=== PATIENT | female | born 1985 | race Caucasian/White ===

== ENCOUNTER 2016-03-26 18:41 | Outpatient (CLI) | payer MEDICAID ==
[~2016-03-26] VITALS: Ht 157.5 cm; Wt 105.3 kg
[2016-03-26 19:30] VITALS: BP 128/67; PULSE 87; RESP 18
[2016-03-26] MEDS ORDERED: LACTATED RINGER'S 1,000 ML IV ONE (20:00)
--- NOTE | 2016-03-26 20:42 | RADRPT ---
PROCEDURE: Ultrasound CLINICAL INDICATION: labor. TECHNIQUE: Ultrasound COMPARISON: None FINDINGS: motion is appropriate for score of 2; breathing is appropriate for score of 2; ton e is appropriate for scar to; and ELOY is appropriate for score of 2. Biophysical profile score of 0 10/12. Cephalic presentation. Cardiac motion is detected at a rate of 148 beats per minute. Placenta is f undal grade II. ELOY is 12.2 cm. IMPRESSION: Biophysical profile score of 10/12. RPTAT: UU Physician Carlitos Date Time Electronically viewed and signed by Physician Carlitos on 03/26/2016 20:42 RS/
[2016-03-26] MEDS ORDERED: LACTATED RINGER'S 1,000 ML IV* SCH (21:00)
[2016-03-26 21:01] LABS: URINE BILIRUBIN (Dip) NEGATIVE (NEGATIVE); URINE BLOOD (Dip) NEGATIVE (NEGATIVE); URINE COLOR LT. YELLOW (YELLOW); URINE GLUCOSE (Dip) NEGATIVE (NEGATIVE); URINE KETONES (Dip) TRACE (NEGATIVE); URINE LEUKOCYTE ESTERASE (Dip) NEGATIVE (NEGATIVE); URINE NITRITE (Dip) NEGATIVE (NEGATIVE); URINE UROBILINOGEN (Dip) 1.0 E.U./dL (0.1-1.0)
[2016-03-26 21:02] LABS: ADD UMIC NO; URINE TOTAL PROTEIN (Dip) NEGATIVE (NEGATIVE)
[2016-03-26 21:23] LABS: BASOPHILS % 0.3 % (0.0-2.0); EOSINOPHILS # 0.2 10^3/ul (0.0-0.5); HEMATOCRIT 35.3 % (37.0-47.0); HEMOGLOBIN 11.6 g/dl (12.0-16.0); LYMPHOCYTES # 1.6 10^3/ul (0.8-2.9); LYMPHOCYTES % 14.1 % (15.0-51.0); MEAN CORPUSCULAR HEMOGLOBIN 23.8 pg (29.0-33.0); MEAN CORPUSCULAR HGB CONC 32.8 g/dl (32.0-37.0); MEAN CORPUSCULAR VOLUME 72.6 fl (82.0-101.0); MONOCYTE # 0.5 10^3/ul (0.3-0.9); MONOCYTES % 4.6 % (0.0-11.0); NEUTROPHIL # 9.1 10^3/ul (1.6-7.5); PLATELET COUNT 303 10^3/UL (140-440); RED BLOOD COUNT 4.86 10^6/ul (4.20-5.40); RED CELL DISTRIBUTION WIDTH 15.3 % (11.5-14.5); UNCORRECTED WBC 11.5 10^3/ul (4.8-10.8); WHITE BLOOD COUNT 11.5 10^3/ul (4.8-10.8)
[2016-03-26 21:26] LABS: CONDITION 1; LH ANALYZER COMMENTS 1
[2016-03-26 21:32] LABS: ALBUMIN 3.4 g/dl (3.3-4.9); POTASSIUM 3.9 mmol/L (3.5-5.1)
[2016-03-26 21:34] LABS: CREATININE 0.36 mg/dl (0.44-1.00)
[2016-03-26 21:35] LABS: ALBUMIN/GLOBULIN RATIO 0.87; BILIRUBIN,INDIRECT 0.3 mg/dl (0-1.1); BILIRUBIN,TOTAL 0.3 mg/dl (0.2-1.3); CALCIUM 9.1 mg/dl (8.4-10.2); TOTAL PROTEIN 7.3 g/dl (6.1-8.1)
--- NOTE | 2016-03-27 03:31 | TRIAGE ---
OB Triage Datetime Report Generated by CPN: 03/27/2016 03:31 Datetime: 03/26/2016 21:50 Stage of : OB Triage Assessment Type: Triage Datetime: 03/26/2016 21:49 Stage of : OB Triage Nausea/Vomiting: Denies Labor Evaluation Frequency: None noted or palpated Monitor Mode: External Resting Tone [place]: Relaxed Heart Rate FHR Baseline Rate: 135 Monitor Mode: External US Variability: Moderate 6-25 bpm Accelerations: 15X15 Decelerations: None Category: Category I Pain Assessment Pain Scale: 0 Pain Presence: None/Denies Pain Type: N/A Pain Assessment Comments: Pt denies any pain or cramping at this time. No N/V since arrival at [facility] . Datetime: 03/26/2016 21:46 Stage of : OB Triage Datetime: 03/26/2016 21:45 Stage of : OB Triage Datetime: 03/26/2016 21:31 Stage of : OB Triage Datetime: 03/26/2016 21:18 Vaginal Exam Dilatation (cms): 1.5 Effacement (%): 30 Station: -3 Exam By: Karina Cohen Membrane Status: Intact Amniotic Fluid Amount: None Vaginal Bleeding: None Cervix, Consistency: Soft Cervix, Position: Posterior Presentation 'A': Cephalic Datetime: 03/26/2016 21:00 Stage of : OB Triage Labor Evaluation Frequency: None noted or palpated Monitor Mode: External Resting Tone [place]: Relaxed Heart Rate FHR Baseline Rate: 140 Monitor Mode: External US FHR Baseline Changes: No Baseline Change Variability: Moderate 6-25 bpm Accelerations: 15X15 Decelerations: None Category: Category I Datetime: 03/26/2016 20:47 Assessment Type: Triage Datetime: 03/26/2016 20:00 Stage of : OB Triage Labor Evaluation Frequency: x2 Monitor Mode: External Duration (sec)2399: 50 Quality: Mild Pattern: Normal: <= 5 Contractions in 10 Minutes Resting Tone [place]: Relaxed Heart Rate FHR Baseline Rate: 140 Monitor Mode: External US Variability: Moderate 6-25 bpm Accelerations: 15X15 Decelerations: None Category: Category I Datetime: 03/26/2016 19:53 Stage of : OB Triage Datetime: 03/26/2016 19:51 Stage of : OB Triage Datetime: 03/26/2016 19:26 Stage of : OB Triage Datetime: 03/26/2016 19:23 EGA: 35.2 Datetime: 03/26/2016 19:20 Time of Arrival: 03/26/2016 18:35 Arrived By: Wheelchair Arrived From: Home Chief Complaint: Itching on abd _ legs, vomiting with bld, abd pain, _ head cold Movement: Present Contractions: Irregular Time Contractions Began: 03/26/2016 16:30 Contractions: with vomiting Rupture of Membranes: Denies Vaginal Bleeding: None Vaginal Discharge: Denies Abdominal Trauma: Not Applicable Patient Complaints: Cramping; Vomiting; Cough; Other Time Provider Notified: 03/26/2016 19:53 Provider Notified: Initial Plan: UA, C_S, CBC, CMP, U/S for BPP, IV hydration, VE Datetime: 03/26/2016 19:13 Assessment Type: Triage Maternal Assessment Level of Consciousness: Fully Conscious DTR's/Clonus: DTRs 2+; No Clonus Headache: Denies Blurred Vision: No Respiratory Effort: Unlabored; Regular Rhythm; Equal Expansion Breath Sounds, Left: Clear and Equal Breath Sounds, Right: Clear and Equal Nausea/Vomiting: Hx of Nausea/Vomiting (Annotations: Hx emesis x3 today. Denies N/V at this time.) RUQ Epigastric Pain: Denies Lower Extremities Edema: Bilateral Lower Extremities Degree: 1+ Upper Extremities Edema: None Degree: None Facial Edema: None Fall Risk Assessment History of Falling: (0) No Secondary Diagnosis: (0) No Ambulatory Aid: (0) Bedrest/Nurse Assist IV Therapy: (0) No Gait: (0) Normal/Bedrest/Immobile Mental Status: (0) Oriented to Own Ability Fall Score: 0 Fall Risk Score Definition: No Risk: No action required Datetime: 03/26/2016 19:05 Stage of : OB Triage Pain Assessment Pain Scale: 7 Pain Presence: Intermittent Pain Type: Cramping Pain Location: Abdomen Pain Relief Measures: Comfort Measures Pain Assessment Comments: Upper abd pain when vomiting with occasional lower abd cramping
== END 2016-03-26 22:07 | disposition home or self-care (01) ==
LOC: OBT 18:41 → L-D 18:41 → OBT 22:07
PROVIDERS: ATTEND Obstetrics & Gynecology
DX: O60.03 Preterm labor without delivery, third trimester (principal); O26.893 Other specified pregnancy related conditions, third trimester; R19.7 Diarrhea, unspecified; O21.2 Late vomiting of pregnancy; Z3A.35 35 weeks gestation of pregnancy
CPT/HCPCS: 76818; 80053; 81003; 83789; 85025; 87086; J7120

== ENCOUNTER 2016-03-28 16:31 | Outpatient (CLI) | payer MEDICAID ==
[~2016-03-28] VITALS: Ht 157.5 cm; Wt 105.8 kg
[2016-03-28 16:38] VITALS: BP 128/66; PULSE 85; RESP 19; Ht 157.5 cm; Wt 105.8 kg
[2016-03-28] MEDS ORDERED: FERR134T PO (16:40)
[2016-03-28] MEDS ORDERED: PREN1TAB79 PO (16:40)
--- NOTE | 2016-03-28 17:21 | RADRPT ---
PROCEDURE: US OB biophysical profile. CLINICAL INDICATION: decreased movements, PTL TECHNIQUE: Multiple sonographic images of the pelvis were obtained. The images were reviewed on a PACS workstation. COMPARISON: 03/26/16 FINDINGS: There is a single viable intrauterine gestation. Cardiac activity is present with 152 beats per min gwen. There is a vertex presentation. The placenta is anterior. There is no evidence of placental abruption. There is a normal amount of amniotic fluid with an ELOY = 15.2 cm. Biophysical profile: movement 2/2 tone 2/2. breathing 2/2 ELOY 2/2 Total 10/12 RPTAT: AA . IMPRESSION: Normal biophysical profile. . .Pradeep Redman MD, MD Date Time Electronically viewed and signed by .Pradeep Redman MD, MD on 03/28/2016 17:21 .S/
--- NOTE | 2016-03-28 19:07 | ERD ---
DATE OF SERVICE: The patient is a 31-year-old G5, P4 here for NST at 35 weeks. The patient has no complaints. NST i s reactive. The patient was discharged home. Followup will be as scheduled with ____. Dictated By: CRISTAL CESPEDES MD /NTS Conf#: [id number] DID#: [id number]
--- NOTE | 2016-03-28 19:16 | TRIAGE ---
OB Triage Datetime Report Generated by CPN: 03/28/2016 19:16 Datetime: 03/28/2016 18:09 Stage of : OB Triage Level of Consciousness: Fully Conscious DTR's/Clonus: DTRs 1+ Headache: Denies Blurred Vision: No Respiratory Effort: Unlabored Breath Sounds, Left: Clear and Equal Breath Sounds, Right: Clear and Equal Nausea/Vomiting: Denies RUQ Epigastric Pain: Denies Facial Edema: None Frequency: NONE Monitor Mode: External Resting Tone [place]: Relaxed FHR Baseline Rate: 145 Monitor Mode: External US Variability: Moderate 6-25 bpm Accelerations: 15X15 Decelerations: None Category: Category I Pain Scale: 0 Pain Presence: None/Denies Pain Type: N/A Pain Goal: 3 Membrane Status: Intact Datetime: 03/28/2016 17:13 Comments: U/S DONE PT BACK ON EFM X 2 Datetime: 03/28/2016 17:00 Stage of : OB Triage Level of Consciousness: Fully Conscious DTR's/Clonus: DTRs 1+ Headache: Denies Breath Sounds, Left: Clear and Equal Breath Sounds, Right: Clear and Equal Nausea/Vomiting: Denies RUQ Epigastric Pain: Denies Frequency: NONE Monitor Mode: External Resting Tone [place]: Relaxed FHR Baseline Rate: 145 Monitor Mode: External US Variability: Moderate 6-25 bpm Accelerations: 15X15 Decelerations: None Category: Category I Comments: U/S TECH AT BEDSIDE Pain Scale: 0 Pain Presence: None/Denies Pain Type: N/A Pain Goal: 3 Membrane Status: Intact Datetime: 03/28/2016 16:34 Assessment Type: Triage Level of Consciousness: Fully Conscious DTR's/Clonus: DTRs 2+; No Clonus Headache: Denies Blurred Vision: No Respiratory Effort: Unlabored; Regular Rhythm; Equal Expansion Breath Sounds, Left: Clear and Equal Breath Sounds, Right: Clear and Equal Nausea/Vomiting: Denies RUQ Epigastric Pain: Denies Lower Extremities Edema: None Degree: None Upper Extremities Edema: None Degree: None Facial Edema: None History of Falling: (0) No Secondary Diagnosis: (0) No Ambulatory Aid: (0) Bedrest/Nurse Assist IV Therapy: (0) No Gait: (0) Normal/Bedrest/Immobile Mental Status: (0) Oriented to Own Ability Fall Score: 0 Fall Risk Score Definition: No Risk: No action required Datetime: 03/28/2016 16:28 Time of Arrival: 03/28/2016 16:28 EGA: 35.4 Arrived By: Ambulatory Arrived From: Home Chief Complaint: NST AND BPP F/U FOR PTL AND GDM Movement: Present Contractions: Denies/Absent Rupture of Membranes: Denies Vaginal Discharge: Denies Recent Sexual Intercouse: Denies Abdominal Trauma: Not Applicable Patient Complaints: None Additional Patient Complaints: PT DENIES ANY OTHER PROBLEM AT THIS TIME Time Provider Notified: 03/28/2016 17:00 Provider Notified: EPTE Initial Plan: NST AND BPP
== END 2016-03-28 18:18 | disposition home or self-care (01) ==
LOC: OBT 16:31 → L-D 16:32 → OBT 18:18
PROVIDERS: ATTEND Obstetrics & Gynecology
DX: O60.03 Preterm labor without delivery, third trimester (principal); Z3A.35 35 weeks gestation of pregnancy
CPT/HCPCS: 76818; Z7500; G0463

== ENCOUNTER 2016-04-25 09:19 | Inpatient (IN) | payer MEDICAID ==
[~2016-04-25] VITALS: Ht 152.4 cm; Wt 105.2 kg
[~2016-04-25 09:19] MED LIST: FERR134T PO; PHENYLephrine (100 MCG/ML) 5ML SYG ONE; PREN1TAB79 PO
[2016-04-25 09:27] VITALS: Ht 152.4 cm; Wt 105.2 kg
[2016-04-25 09:28] VITALS: BP 135/70
[2016-04-25] MEDS ORDERED: CARBOPROST 250 MCG INJ IM PRN ×2 (10:00→21:30)
[2016-04-25] MEDS ORDERED: OXYTOCIN 30 UNITS/LR 500 ML IV SCH ×3 (10:00)
[2016-04-25] MEDS ORDERED: AMPICILLIN 2 GM/NS (PMX) 100 ML IV ONE (10:00)
[2016-04-25] MEDS ORDERED: OXYTOCIN 30 UNITS/LR 500 ML IV PRN ×2 (10:00→21:30)
[2016-04-25] MEDS ORDERED: MISOPROSTOL 200 MCG TAB PR PRN ×2 (10:00→21:30)
[2016-04-25] MEDS ORDERED: METHYLERGONOVINE 0.2 MG INJ IM PRN ×2 (10:00→21:30)
[2016-04-25] MEDS ORDERED: LIDOCAINE 1% (MPF) 30 ML INJ INJ PRN (10:00)
[2016-04-25] MEDS ORDERED: LACTATED RINGER'S 1,000 ML IV PRN (10:00)
[2016-04-25] MEDS ORDERED: BUTORPHANOL 2 MG INJ IV PRN (10:00)
--- NOTE | 2016-04-25 10:05 | TRIAGE ---
OB Triage Datetime Report Generated by CPN: 04/25/2016 10:05 Datetime: 04/25/2016 10:00 Interventions: Side to Side Datetime: 04/25/2016 09:40 Bedside Blood Glucose: 157 Datetime: 04/25/2016 09:36 Labor Evaluation Monitor Mode: External Datetime: 04/25/2016 09:35 Vaginal Exam Dilatation (cms): 1.0 Effacement (%): 70 Station: -3 Exam By: Kianna SANTIAGO Datetime: 04/25/2016 09:32 Stage of : OB Triage Assessment Type: Triage Maternal Assessment Level of Consciousness: Fully Conscious DTR's/Clonus: DTRs 2+; No Clonus Headache: Denies Blurred Vision: No Respiratory Effort: Unlabored; Regular Rhythm; Equal Expansion Breath Sounds, Left: Clear and Equal Breath Sounds, Right: Clear and Equal Nausea/Vomiting: Denies RUQ Epigastric Pain: Denies Lower Extremities Edema: None Degree: None Upper Extremities Edema: None Degree: None Facial Edema: None Temperature Route: Oral Fall Risk Assessment History of Falling: (0) No Secondary Diagnosis: (0) No Ambulatory Aid: (0) Bedrest/Nurse Assist IV Therapy: (0) No Gait: (0) Normal/Bedrest/Immobile Mental Status: (0) Oriented to Own Ability Fall Score: 0 Fall Risk Score Definition: No Risk: No action required Labor Evaluation Monitor Mode: External Heart Rate FHR Baseline Rate: 155 Monitor Mode: External US Variability: Minimal - Undetectable to <=5 bpm Accelerations: 10X10 Decelerations: None Category: Category II Pain Assessment Pain Scale: 0 Pain Presence: None/Denies Pain Type: N/A Datetime: 04/25/2016 09:31 Time of Arrival: 04/25/2016 09:17 EGA: 39.4 Arrived By: Ambulatory Arrived From: Home Chief Complaint: UC'S SINCE 0200 Movement: Present Contractions: Regular Time Contractions Began: 04/25/2016 02:00 Contractions: 1-12 Rupture of Membranes: Ruptured Vaginal Bleeding: None Vaginal Discharge: Denies Recent Sexual Intercouse: Denies Abdominal Trauma: Not Applicable Patient Complaints: Contractions Time Provider Notified: 04/25/2016 09:52 Provider Notified: dr. burnett Initial Plan: VE, NST Datetime: 03/28/2016 18:18 Time of Arrival: 04/25/2016 09:17 EGA: 39.4 Arrived From: Home Movement: Present Contractions: Regular Contractions: 1-1 Rupture of Membranes: Denies Vaginal Discharge: Denies Recent Sexual Intercouse: Denies Abdominal Trauma: Not Applicable Datetime: 03/28/2016 16:34 Fall Score: 0 Fall Risk Score Definition: No Risk: No action required Datetime: 03/28/2016 16:28 EGA: 35.4 Datetime: 03/26/2016 19:23 EGA: 35.2 Datetime: 03/26/2016 19:13 Fall Score: 0 Fall Risk Score Definition: No Risk: No action required
[2016-04-25] MEDS: LACTATED RINGER'S 1,000 ML IV SCH ×2 (10:18→14:15)
--- NOTE | 2016-04-25 11:00 | RADRPT ---
PROCEDURE: US OB biophysical profile. CLINICAL INDICATION: decreased movements, labor pain TECHNIQUE: Multiple sonographic images of the pelvis were obtained. The images were reviewed on a PACS workstation. COMPARISON: 03/28/2016 FINDINGS: There is a single viable intrauterine gestation. Cardiac activity is present with 161 beats per min gwen. There is a vertex presentation. The placenta is posterior. There is no evidence of placental abruption. There is a decreased amount of amniotic fluid with an ELOY = 5.5 cm. Biophysical profile: movement 2/2 tone 2/2. breathing 2/2 ELOY 2/2 Total 10/12 RPTAT: AA . IMPRESSION: Normal biophysical profile. Oligohydramnios. . .Pradeep Redman MD, Date Time Electronically viewed and signed by .Pradeep Redman MD, on 04/25/2016 11:00 .S/
--- NOTE | 2016-04-25 11:04 | RADRPT ---
PROCEDURE: US OB. CLINICAL INDICATION: Size and dates , labor pain TECHNIQUE: Multiple sonographic images of the pelvis and gravid uterus were obtained. The images were reviewed on a PACS workstation. COMPARISON: No prior studies are available for comparison. FINDINGS: There is a single viable intrauterine gestation. Cardiac activity is present with 163 beats per min gwen. There is a vertex presentation. The placenta is posterior. There is no evidence for an abruption or placenta previa. Measurements were made in order to determine age. The results are as follows: BPD =8.9 cm HC =30.9 cm AC =32.3 cm FL =6.9 cm Estimated gestational age of approximately 35 weeks and 4 days based on ultrasound measurements. Clinical age: 39 weeks and 4 days. The estimated date of delivery is 05/26/16, based on ultrasound measurements. The EFW = 2773 g, 4.3%, based on LMP age. RPTAT: AA IMPRESSION: Single viable intrauterine gestation of approximately 35 weeks and 4 days based on ultrasound measu rements. Smaller than clinical age by 4 weeks. .Pradeep Redman MD, MD Date Time Electronically viewed and signed by .Pradeep Redman MD, on 04/25/2016 11:04 .S/
[2016-04-25 11:48] LABS: BASOPHILS % 0.3 % (0.0-2.0); EOSINOPHILS # 0.2 10^3/ul (0.0-0.5); EOSINOPHILS % 1.7 % (0.0-7.0); HEMOGLOBIN 11.8 g/dl (12.0-16.0); LYMPHOCYTES # 1.4 10^3/ul (0.8-2.9); LYMPHOCYTES % 15.3 % (15.0-51.0); MEAN CORPUSCULAR HEMOGLOBIN 23.9 pg (29.0-33.0); MEAN CORPUSCULAR HGB CONC 32.9 g/dl (32.0-37.0); MEAN CORPUSCULAR VOLUME 72.8 fl (82.0-101.0); MEAN PLATELET VOLUME 8.6 fl (7.4-10.4); MONOCYTE # 0.7 10^3/ul (0.3-0.9); MONOCYTES % 7.6 % (0.0-11.0); NEUTROPHIL # 7.1 10^3/ul (1.6-7.5); NEUTROPHILS % 75.1 % (39.0-77.0); PLATELET COUNT 233 10^3/UL (140-440); RED BLOOD COUNT 4.95 10^6/ul (4.20-5.40); RED CELL DISTRIBUTION WIDTH 16.5 % (11.5-14.5); UNCORRECTED WBC 9.5 10^3/ul (4.8-10.8); WHITE BLOOD COUNT 9.5 10^3/ul (4.8-10.8)
[2016-04-25 11:50] LABS: CONDITION 1; LH ANALYZER COMMENTS 1
[2016-04-25 12:01] LABS: INR 0.88; PROTIME 11.9 Sec (12.2-14.2); PT RATIO 0.9
[2016-04-25 12:02] LABS: PARTIAL THROMBOPLASTIN TIME 30.1 Sec (25.0-35.0)
[2016-04-25 13:25] LABS: BARBITURATES Negative (NEGATIVE); BENZODIAZEPINES Negative (NEGATIVE); CANNABINOIDS Negative (NEGATIVE); COCAINE Negative (NEGATIVE); OPIATES Negative (NEGATIVE)
[2016-04-25] MEDS: AMPICILLIN 1 GM/NS (PMX) 50 ML IV SCH ×2 (14:15→17:37)
[2016-04-25] MEDS ORDERED: FENTAnyl 2MCG/ML-ROPIV 0.2% 100 ML ONE (16:02)
--- NOTE | 2016-04-25 17:13 | HP ---
Date/Time of Note Date/Time of Note DATE: 04/25/16 TIME: 17:11 OB - History Hx of Present Free Text/Dictation @39+wks GA with Low ELOY,Spontaneous decels and labor : 5 Para: 3 Care: Good Care Obstetrical Complications: Gestational Diabetes Past Family/Social History * Past Medical, Surgical, Family and Obstetric Histories reviewed from chart. OB Admission Exam Vital Signs Vital Signs Vital Signs Date Time Temp Pulse Resp B/P Pulse Ox O2 Delivery O2 Flow Rate FiO2 04/25/16 09:28 98.3 135/70 Room Air Physical Exam Abdomen: WNL Extremities: Normal Cervical Dilatation: 5cm Effacement: 75% Station: -1 Membranes: Intact Heart Rate: 140's Decelerations: Variable Decelerations Varibility: Minimum Contractions on Admission: 6-10 Minutes Apart Last 72 hourBlood Glucose Bedside Glucose - 72 Hours Test 04/25/16 09:40 Bedside Glucose 157mg/dL (70-220) Last 72 hours Lab Results CBC & BMP 04/25/16 11:30 OB Assessment/Plan Reason for admission: active labor Plan: Expectant Management Other plan: @39+wks GA with Low ELOY,Spontaneous decels and labor URVASHI FREEMAN M.D. Apr 25, 2016 17:13
--- NOTE | 2016-04-25 17:14 | LDN ---
Date/Time of Note Date/Time of Note DATE: 04/25/16 TIME: 17:13 Delivery Summary Assisted Vaginal Delivery: Vacuum ( bradycardia) Placenta Delivered: Spontaneously Meconium: Light Perineum intact?: Yes Anesthesia type: Epidural Sponge & Needle done & correct: Yes All needle counts correct: Yes Any foreign bodies felt in the: No Problems: Delivery Information Sex Sex: female Suctioning Nose & mouth suctioned at michelle: Yes Delee suction performed: Yes Umbilical Cord Umbilical cord with: 3 Vessels Cord presentations: no nuchal cord Cord Blood was obtained: Yes Mother & Baby Disposition Disposition Mom & Baby to Maternity; Good: Yes Baby to NICU: No URVASHI FREEMAN M.D. Apr 25, 2016 17:14
[2016-04-25] MEDS ORDERED: FENTAnyl 2MCG/ML-ROPIV 0.2% 100 ML BAG EPI SCH (17:30)
[2016-04-25] MEDS ORDERED: NALOXONE (0.4 MG/ML) INJ IV PRN (17:30)
[2016-04-25] MEDS ORDERED: IBUPROFEN 600 MG TAB PO ONE (20:08)
[2016-04-25 20:45] VITALS: BP 131/86; PULSE 85; RESP 19
[2016-04-25] MEDS ORDERED: OXYCODONE/ASPIRIN (4.88/325) TAB PO PRN (21:30)
[2016-04-25] MEDS ORDERED: ZOLPIDEM 5 MG TAB PO PRN (21:30)
[2016-04-25] MEDS ORDERED: LANOLIN 7 GM TUBE TOP PRN (21:30)
[2016-04-25] MEDS ORDERED: SENNA/DOCUSATE NA (8.6MG/50MG) TAB PO PRN (21:30)
[2016-04-25] MEDS ORDERED: WITCH HAZEL/GLYCERIN PAD PR PRN (21:30)
[2016-04-25] MEDS ORDERED: BENZOCAINE 20% 56 ML SPRAY TOP PRN (21:30)
[2016-04-25] MEDS: LACTATED RINGER'S 1,000 ML IV* SCH (21:38)
[2016-04-26] VITALS: BP 127/75; PULSE 78; RESP 18
[2016-04-26 04:00] VITALS: BP 120/73; PULSE 74; RESP 18
[2016-04-26] MEDS: IBUPROFEN 600 MG TAB PO SCH ×4 (06:00→17:39)
[2016-04-26] MEDS: LACTATED RINGER'S 1,000 ML IV* SCH (06:10)
[2016-04-26 07:36] LABS: BASOPHILS % 0.3 % (0.0-2.0); EOSINOPHILS # 0.1 10^3/ul (0.0-0.5); EOSINOPHILS % 0.7 % (0.0-7.0); HEMATOCRIT 31.4 % (37.0-47.0); HEMOGLOBIN 10.5 g/dl (12.0-16.0); LYMPHOCYTES # 2.1 10^3/ul (0.8-2.9); LYMPHOCYTES % 21.6 % (15.0-51.0); MEAN CORPUSCULAR HEMOGLOBIN 24.5 pg (29.0-33.0); MEAN CORPUSCULAR HGB CONC 33.4 g/dl (32.0-37.0); MEAN CORPUSCULAR VOLUME 73.4 fl (82.0-101.0); MEAN PLATELET VOLUME 8.8 fl (7.4-10.4); MONOCYTE # 0.6 10^3/ul (0.3-0.9); MONOCYTES % 6.1 % (0.0-11.0); NEUTROPHILS % 71.3 % (39.0-77.0); PLATELET COUNT 216 10^3/UL (140-440); RED BLOOD COUNT 4.28 10^6/ul (4.20-5.40); RED CELL DISTRIBUTION WIDTH 16.4 % (11.5-14.5); UNCORRECTED WBC 9.8 10^3/ul (4.8-10.8); WHITE BLOOD COUNT 9.8 10^3/ul (4.8-10.8)
[2016-04-26 07:41] LABS: CONDITION 1; LH ANALYZER COMMENTS 1
[2016-04-26 08:00] VITALS: BP 102/54; PULSE 69; RESP 18
[2016-04-26] MEDS: SENNA/DOCUSATE NA (8.6MG/50MG) TAB PO SCH ×2 (09:00→21:50)
[2016-04-26 12:00] VITALS: BP 121/88; PULSE 73; RESP 18
[2016-04-26 16:00] VITALS: BP 121/56; PULSE 74; RESP 17
[2016-04-26 20:00] VITALS: BP 131/64; PULSE 81; RESP 18
--- NOTE | 2016-04-26 21:04 | QN ---
Documentation Comment PPD#1 is stable afebrile tolerates diet No VB +BM +voids No sign of depression VS stable Gen NAD Abd soft NT ND Genitalia no blood at perinium ---Discharge tomorrow URVASHI FREEMAN M.D. Apr 26, 2016 21:04
[2016-04-27] MEDS: IBUPROFEN 600 MG TAB PO SCH ×3 (00:39→11:31)
[2016-04-27 04:00] VITALS: BP 131/74; PULSE 66; RESP 18
[2016-04-27 07:30] VITALS: BP 129/77; PULSE 76; RESP 18
[2016-04-27] MEDS: SENNA/DOCUSATE NA (8.6MG/50MG) TAB PO SCH (08:38)
[2016-04-27] MEDS ORDERED: DIPHTH/TET/ACEL PERTUSS (ADULT) 0.5 ML VIAL IM* ONE (09:00)
[2016-04-27] MEDS ORDERED: INFLUENZA VIRUS VACCINE 0.5 ML (DISPENSING) IM* ONE (09:00)
[2016-04-27 10:44] LABS: RUBELLA ANTIBODY - IGG 3.77
== END 2016-04-27 12:30 | disposition home or self-care (01) | DRG 775 ==
LOC: L-D 09:19 → OBT 09:19 → L-D 10:00 → OBT 10:02 → PP1 20:38
PROVIDERS: ADMIT Obstetrics & Gynecology; ATTEND Obstetrics & Gynecology
PROC: 10E0XZZ Delivery of Products of Conception, External Approach (ICD-10-PCS; principal; 2016-04-25)
PROC: 10D07Z6 Extraction of Products of Conception, Vacuum, Via Natural or Artificial Opening (ICD-10-PCS; 2016-04-25)
DX: O24.410 Gestational diabetes mellitus in pregnancy, diet controlled (principal); O76 Abnormality in fetal heart rate and rhythm complicating labor and delivery; Z3A.39 39 weeks gestation of pregnancy; Z37.0 Single live birth
CPT/HCPCS: 62319; 76815; 76818; 80307; 82962; 85025; 85610; 85730; 86592; 86703; 86762; 86885; 86900; 86901; 87340; 90686; 90715; 99464; G0463; J0290; J2370; J2590; J3010; J7120

== ENCOUNTER 2018-07-17 16:26 | Inpatient (IN) | payer MEDICAID ==
[~2018-07-17] VITALS: Ht 157.5 cm; Wt 109.4 kg
[2018-07-17] MEDS ORDERED: LACTATED RINGER'S 1,000 ML IV SCH (17:30)
--- NOTE | 2018-07-17 17:47 | HP ---
Date/Time of Note Date/Time of Note DATE: 07/17/18 TIME: 17:43 OB - History Hx of Present Free Text/Dictation 33-year-old 6 para 5 at 36 weeks and 4 days of gestation with estimated date of delivery August 10, 2018 She is gestational diabetic diet controlled; blood sugar here in triage 87 Patient was sent from testing unit with nonreactive NST She reports positive movement, denies any uterine contractions, denies any vaginal bleeding or leaking fluid Estimated Due Date: Aug 10, 2018 : 6 Para: 5 Care: Good Care Obstetrical Complications: Gestational Diabetes (GDM A1) Past Family/Social History * Past Medical, Surgical, Family and Obstetric Histories reviewed from chart. OB Admission Exam Physical Exam HEENT: WNL Heart: Rhythm Normal Lungs: Clear, Equal Abdomen: WNL Extremities: Normal Reflexes: Normal Membranes: Intact Heart Rate: 140's Accelerations: Accelerations Present Decelerations: No Decelerations Varibility: Minimum Contractions on Admission: None Last 72 hours Lab Results PROCEDURE: US OB biophysical profile. CLINICAL INDICATION: decreased movements, TECHNIQUE: Multiple sonographic images of the pelvis were obtained. The images were reviewed on a PACS workstation. COMPARISON: No prior studies are available for comparison. FINDINGS: There is a single live intrauterine gestation. Cardiac activity is present with 146 beats per minute. There is a vertex presentation. The placenta is posterior fundal. There is no evidence of placental abruption. ELOY = 14.9 cm. Biophysical profile: movement 2/2 tone 2/2. breathing 2/2 ELOY 2/2 Total 88 RPTAT: AA . IMPRESSION: Normal biophysical profile. . .Pradeep Redman MD, Date Time Electronically viewed and signed by .Pradeep Redman MD, on 07/17/2018 17:26 .S/ CC: JOESPH CUEVAS MD [id number] OB Assessment/Plan Reason for admission: other (Nonreactive NST) Other plan: Admit to labor and delivery IV fluid Observation with continuous heart rate monitoring Copies To: CC: NAVNEET ROSADO MD ; JOESPH CUEVAS MD July 17, 2018 17:47
--- NOTE | 2018-07-17 18:24 | TRIAGE ---
OB Triage Datetime Report Generated by CPN: 07/17/2018 18:24 Datetime: 07/17/2018 18:09 Stage of : Antepartum Temperature Route: Oral Pain Assessment Pain Scale: 8 Pain Presence: Intermittent Pain Type: Contraction Pain Location: Abdomen Pain Goal: 0 Datetime: 07/17/2018 18:04 Stage of : Antepartum Datetime: 07/17/2018 18:02 Maternal Assessment Level of Consciousness: Fully Conscious DTR's/Clonus: DTRs 1+ Headache: Denies Blurred Vision: No Respiratory Effort: Unlabored Breath Sounds, Left: Clear and Equal Breath Sounds, Right: Clear and Equal Nausea/Vomiting: Denies RUQ Epigastric Pain: Denies Facial Edema: None Labor Evaluation Frequency: OCC Monitor Mode: External Duration (sec)2399: 40-50 Quality: Mild Pattern: Normal: <= 5 Contractions in 10 Minutes Resting Tone [place]: Relaxed Heart Rate FHR Baseline Rate: 140 Monitor Mode: External US Variability: Minimal - Undetectable to <=5 bpm Decelerations: None Category: Category III Pain Assessment Pain Scale: 0 Pain Presence: None/Denies Pain Type: N/A Pain Goal: 3 Vaginal Exam Membrane Status: Intact Datetime: 07/17/2018 17:35 Maternal Assessment Level of Consciousness: Fully Conscious DTR's/Clonus: DTRs 1+ Headache: Denies Blurred Vision: No Respiratory Effort: Unlabored Breath Sounds, Left: Clear and Equal Breath Sounds, Right: Clear and Equal RUQ Epigastric Pain: Denies Facial Edema: None Labor Evaluation Frequency: OCC Monitor Mode: External Duration (sec)2399: 40-50 Quality: Mild Pattern: Normal: <= 5 Contractions in 10 Minutes Resting Tone [place]: Relaxed Heart Rate FHR Baseline Rate: 140 Monitor Mode: External US Variability: Minimal - Undetectable to <=5 bpm Accelerations: 15X15 Decelerations: None Category: Category II Pain Presence: None/Denies Pain Type: N/A Vaginal Exam Membrane Status: Intact Datetime: 07/17/2018 17:19 Monitor Mode: External US Datetime: 07/17/2018 16:50 Stage of : OB Triage Maternal Assessment Level of Consciousness: Fully Conscious DTR's/Clonus: DTRs 1+ Headache: Denies Blurred Vision: No Respiratory Effort: Unlabored Breath Sounds, Left: Clear and Equal Breath Sounds, Right: Clear and Equal Nausea/Vomiting: Denies RUQ Epigastric Pain: Denies Facial Edema: None Labor Evaluation Frequency: NONE Monitor Mode: External Resting Tone [place]: Relaxed Heart Rate FHR Baseline Rate: 140 Monitor Mode: External US Variability: Minimal - Undetectable to <=5 bpm Decelerations: None Category: Category III Pain Assessment Pain Scale: 0 Pain Presence: None/Denies Pain Type: N/A Pain Goal: 3 Vaginal Exam Membrane Status: Intact Datetime: 07/17/2018 16:47 Stage of : OB Triage Labor Evaluation Frequency: NONE Monitor Mode: External Interventions: Side to Side Heart Rate FHR Baseline Rate: 140 Monitor Mode: External US Variability: Minimal - Undetectable to <=5 bpm Accelerations: None Category: Category III Pain Assessment Pain Scale: 0 Pain Presence: None/Denies Pain Type: N/A Pain Goal: 0 Datetime: 07/17/2018 16:21 Stage of : OB Triage Time of Arrival: 07/17/2018 16:21 EGA: 36.4 Arrived By: Ambulatory Arrived From: Other Unit in Hospital Chief Complaint: NON REASSURING STRIP Movement: Present Contractions: Denies/Absent Rupture of Membranes: Denies Vaginal Discharge: Denies Recent Sexual Intercouse: Denies Abdominal Trauma: Not Applicable Patient Complaints: Other Additional Patient Complaints: NONE Time Provider Notified: 07/17/2018 16:47 Provider Notified: ASHLEE Initial Plan: MONITOR, IV HYDRATION BPP
--- NOTE | 2018-07-17 19:25 | PREOPHP ---
DATE OF ADMISSION: 07/17/2018 HISTORY OF PRESENT ILLNESS: Ms. Tori Gaitan is a 33-year-old 6, para 5, EDC 08/10/2018 , intrauterine at 36 weeks and 4 days gestational age, who was sent from the [facility] clinic sec ondary to nonreactive heart tracing. The patient has a history of GDM A1/obesity in the curren t . She reports good movement. heart rate is currently in the 140s with positi ve accelerations. Her biophysical profile is 8/8 with an ELOY of 14. The patient's heart yvan ng was reviewed with Dr. Martinez and agrees to admit the patient for continuous close monitoring. Her care took place at [facility]. PAST MEDICAL HISTORY: None. MEDICATIONS: vitamins. PAST SURGICAL HISTORY: None. OBSTETRICAL HISTORY: Times 5 vaginal delivery, which 3 of them were born . GYNECOLOGIC HISTORY: Twelve, regular, 3 to 4 days. Denies any sexually transmitted disease. Sexual ly active with 1 partner. SOCIAL HISTORY: Denies any smoking, drugs, or alcohol. FAMILY HISTORY: None. REVIEW OF SYSTEMS: All within normal except history of present illness. PHYSICAL EXAMINATION: HEENT: Within normal. LUNGS: CTA, bilateral. CARDIOVASCULAR: S1 and S2, regular rhythm. ABDOMEN: Gravid, nontender. Negative CVA, bilateral. EXTREMITIES: Negative. No calf tenderness. PELVIC: Vaginal exam deferred. heart tracing currently category 1. ASSESSMENT: Intrauterine at 36 weeks and 4 days gestational age, admitted for close heart rate monitoring. PLAN: Admit the patient, give steroid treatment. Continue to have close heart rate monitoring . Dictated By: NAVNEET RUIZ/BRET Conf#: [id number] DID#: [id number]
[2018-07-17 19:26] VITALS: BP 128/80; PULSE 77; RESP 18
[2018-07-17] MEDS ORDERED: GLUCAGON 1 MG INJ IM PRN (19:30)
[2018-07-17] MEDS ORDERED: DEXTROSE 50% 50 ML SYRINGE IV PRN ×2 (19:30)
[2018-07-17] MEDS ORDERED: GLUCOSE GEL 15 GRAM TUBE PO PRN ×2 (19:30)
[2018-07-17] MEDS ORDERED: GLUCOSE GEL 15 GRAM TUBE BUCCAL PRN (19:30)
[2018-07-17] MEDS: LACTATED RINGER'S 1,000 ML IV SCH (19:30)
[2018-07-17] MEDS ORDERED: BETAMET NA PHOS/AC(6 MG/ML) 2 ML INJ SYG IM ONE (20:30)
[2018-07-17] MEDS: INSULIN ASPART [NOVOLOG] 3 ML PEN SC SCH (22:18)
[2018-07-17 23:13] VITALS: Ht 157.5 cm; Wt 109.4 kg
[2018-07-18] MEDS: LACTATED RINGER'S 1,000 ML IV SCH ×3 (03:30→19:07)
[2018-07-18] MEDS: INSULIN ASPART [NOVOLOG] 3 ML PEN SC SCH ×4 (07:03→20:44)
[2018-07-18] MEDS: DOCUSATE SODIUM 100 MG CAP PO SCH (09:13)
[2018-07-18] MEDS: PRENATAL VITAMIN PO SCH (09:13)
[2018-07-18] MEDS: FERROUS SULFATE (EC) 325 MG TAB PO SCH (09:13)
--- NOTE | 2018-07-18 16:24 | PN ---
DATE: 07/18/2018 The patient is 36 weeks and 5 days was sent from the perinatology clinic yesterday secondary to categ ory 2 strip. BPP yesterday was done. It was reported to be 10/12. I reviewed her strip. Currently, it is remaining category 2, but continued with the monitoring in-house and delivery at 37 weeks unles s there are nonreassuring heart tones. Dictated By: EDWIN CHOI MD ST/NTS Conf#: [id number] DID#: [id number] CC: NAVNEET ROSADO MD;*EndCC*
--- NOTE | 2018-07-18 18:17 | QN ---
Documentation Comment progress note patient see and evaluated no complaints, positive movement vs stable afebrile ab gravid, nt extremity no edema no calf tender ve deffered fhr 140s with positive accel a/ iup at 36 5/7 wks ga, cat 1/2 tracing p/ deliver at 37 wks ga continue to monitor closely NAVNEET ROSADO MD July 18, 2018 18:17
[2018-07-18] MEDS ORDERED: BETAMET NA PHOS/AC(6 MG/ML) 2 ML INJ SYG IM ONE (20:30)
[2018-07-19] MEDS: LACTATED RINGER'S 1,000 ML IV SCH ×3 (02:58→18:33)
[2018-07-19] MEDS: INSULIN ASPART [NOVOLOG] 3 ML PEN SC SCH ×3 (06:54→17:35)
[2018-07-19] MEDS: FERROUS SULFATE (EC) 325 MG TAB PO SCH (09:11)
[2018-07-19] MEDS: DOCUSATE SODIUM 100 MG CAP PO SCH (09:11)
[2018-07-19] MEDS: PRENATAL VITAMIN PO SCH (09:11)
[2018-07-20] MEDS: INSULIN ASPART [NOVOLOG] 3 ML PEN SC SCH ×2 (02:28→20:56)
[2018-07-20] MEDS: LACTATED RINGER'S 1,000 ML IV SCH ×2 (02:37→10:43)
[2018-07-20] MEDS ORDERED: LACTATED RINGER'S 1,000 ML IV PRN (03:01)
[2018-07-20] MEDS ORDERED: MISOPROSTOL 200 MCG TAB PR PRN ×2 (03:30→23:30)
[2018-07-20] MEDS ORDERED: IBUPROFEN 600 MG TAB PO PRN (03:30)
[2018-07-20] MEDS ORDERED: LIDOCAINE 1% (MPF) 30 ML INJ INJ PRN (03:30)
[2018-07-20] MEDS ORDERED: OXYTOCIN 30 UNITS/LR 500 ML IV PRN ×2 (03:30→23:30)
[2018-07-20] MEDS ORDERED: CARBOPROST 250 MCG INJ IM PRN ×2 (03:30→23:30)
[2018-07-20] MEDS ORDERED: BUTORPHANOL 2 MG INJ IV PRN (03:30)
[2018-07-20] MEDS ORDERED: METHYLERGONOVINE 0.2 MG INJ IM PRN ×2 (03:30→23:30)
[2018-07-20] MEDS ORDERED: OXYTOCIN 30 UNITS/LR 500 ML IV SCH ×4 (03:30→23:23)
[2018-07-20] MEDS: MISOPROSTOL 50 MCG CAPSULE PO SCH ×3 (04:04→20:52)
[2018-07-20] MEDS: FERROUS SULFATE (EC) 325 MG TAB PO SCH (08:22)
[2018-07-20] MEDS: DOCUSATE SODIUM 100 MG CAP PO SCH (08:22)
[2018-07-20] MEDS: PRENATAL VITAMIN PO SCH (08:22)
--- NOTE | 2018-07-20 17:20 | QN ---
Documentation Comment progress note patient seen and evaluated no complaints vs stable afebrile ab soft nt extremity no edema no calf tenderness ve 4/80/-2 fhr 140's toco regular a/ iup at 37 wks ga, in labor currently on pitocin p/ pain management anticipate vaginal delivery NAVNEET ROSADO MD July 20, 2018 17:19
--- NOTE | 2018-07-20 17:22 | PREAC ---
Date/Time of Note Date/Time of Note DATE: 07/20/18 TIME: 17:20 Anesthesia Eval and Record Evaluation Time Pre-Procedure Interview DATE: 07/20/18 TIME: 17:20 Age 33 Sex female NPO: 8 hrs Preoperative diagnosis IUP Planned procedure L&D Epidural Past Medical History Past Medical History: None Surgery & Anesthesia Issues No known issue Meds Anticoagulation: No Beta Noah within 24 hr: No Reason Beta Noah not given: Pt. not on B-Noah No Active Prescriptions or Reported Meds Current Medications Lactated Ringer's 1,000 ml @ 125 mls/hr Q8H IV Last administered on 07/20/18at 10:43; Admin Dose 125 MLS/HR; Start 07/17/18 at 18:59 Prenat Multivit/ Lamar/Iron/Folic Ac () 1 tab DAILY PO Last administered on 07/20/18at 08:22; Admin Dose 1 TAB; Start 07/18/18 at 09:00 Ferrous Sulfate (Ferrous Sulfate (Ec)) 325 mg DAILY PO Last administered on 07/20/18at 08:22; Admin Dose 325 MG; Start 07/18/18 at 09:00 Docusate Sodium (Colace) 100 mg DAILY PO Last administered on 07/20/18at 08:22; Admin Dose 100 MG; Start 07/18/18 at 09:00 Insulin Aspart (Novolog Insulin Pen) NOVOLOG *MILD* ALGORITHM WITH MEALS BEDTIME SC ; Start 07/17/18 at 21:00 Miscellaneous Information 1 ea NOTE XX ; Start 07/17/18 at 19:30 Glucose (Glutose) 15 gm Q15M PRN PO DECREASED GLUCOSE; Start 07/17/18 at 19:30 Glucose (Glutose) 22.5 gm Q15M PRN PO DECREASED GLUCOSE; Start 07/17/18 at 19:30 Dextrose (D50w Syringe) 25 ml Q15M PRN IV DECREASED GLUCOSE; Start 07/17/18 at 19:30 Dextrose (D50w Syringe) 50 ml Q15M PRN IV DECREASED GLUCOSE; Start 07/17/18 at 19:30 Glucagon (Glucagen) 1 mg Q15M PRN IM DECREASED GLUCOSE; Start 07/17/18 at 19:30 Glucose (Glutose) 15 gm Q15M PRN BUCCAL DECREASED GLUCOSE; Start 07/17/18 at 19:30 Misoprostol (Cytotec 50 Mcg Capsule) 50 mcg Q4 PO Last administered on 07/20/18at 08:22; Admin Dose 50 MCG; Start 07/20/18 at 01:30 Butorphanol Tartrate (Stadol) 2 mg Q2H PRN IV .PAIN SCALE 6-10; Start 07/20/18 at 03:30 Lidocaine (Xylocaine 1% (Mpf)) 30 ml ONCE PRN INJ .EPISIOTOMY; Start 07/20/18 at 03:30 Oxytocin/Lactated Ringer's 500 ml @ 500 mls/hr ONCE POST IV ; Start 07/20/18 at 03:30 Oxytocin/Lactated Ringer's 500 ml @ 125 mls/hr POST IV ; Start 07/20/18 at 03:30 Ibuprofen (Motrin) 600 mg ONCE PRN PO .PAIN 1-5; Start 07/20/18 at 03:30 Lactated Ringer's 1,000 ml @ 2,000 mls/hr Q30M PRN IV .ANESTHESIA; Start at 03:01 Oxytocin/Lactated Ringer's 500 ml @ 0 mls/hr ONCE PRN IV .VAGINAL BLEEDING Last administered on 07/20/18at 13:45; Admin Dose 2 MLS/HR; Start 07/20/18 at 03:30 Methylergonovine Maleate (Methergine) 0.2 mg ONCE PRN IM .VAGINAL BLEEDING; Start 07/20/18 at 03:30 Carboprost Tromethamine (Hemabate) 250 mcg ONCE PRN IM .VAGINAL BLEEDING; Start 07/20/18 at 03:30 Misoprostol (Cytotec) 1,000 mcg ONCE PRN FL .VAGINAL BLEEDING; Start 07/20/18 at 03:30 Oxytocin/Lactated Ringer's 500 ml @ 0 mls/hr Q0M IV ; Start 07/20/18 at 13:30 Meds reviewed: Yes Allergies Coded Allergies: No Known Drug Allergies (Verified Allergy, Unknown, 04/25/16) Allergies Reviewed: Yes Labs/Studies Labs Reviewed: Reviewed by anesthesiologist Result Diagram: 07/17/18 2856 test: N/A Pre-procedure Exam Last vitals Vital Signs Date Temp Pulse Resp B/P (MAP) Pulse Ox O2 O2 Flow FiO2 Time Delivery Rate 5/13/19 98.0 77 18 128/80 Room Air 19:26 (96) Airway: Adequate mouth opening, Adequate thyromental dist Mallampati: Mallampati II Teeth: Normal Lung: Normal Heart: Normal ASA Physical Status ASA physical status: 2 Emergency: None Planned Anesthetic Neuraxial: Epidural Planned Pain Management Epidural Pre-operative Attestations Prior to commencing anesthesia and surgery, the patient was re-evaluated, there was verification of: *The patient's identity *The results of appropriate recent lab work and preoperative vital signs *The above evaluation not changing prior to induction *Anesthetic plan, risk benefits, alternative and complications discussed with patient/family; questions answered; patient/family understands, accepts and wishes to proceed. MARIO ALBERTO AIKEN MD July 20, 2018 17:21
[2018-07-20] MEDS ORDERED: NALOXONE (0.4 MG/ML) INJ IV PRN (17:30)
[2018-07-20] MEDS ORDERED: FENTAnyl 2MCG/ML-ROPIV 0.2% 100 ML BAG EPI SCH (17:30)
[2018-07-20] MEDS ORDERED: ONDANSETRON 4 MG INJ IV PRN ×2 (17:30→23:30)
[2018-07-20] MEDS ORDERED: DIPHENHYDRAMINE 50 MG INJ IV PRN (17:30)
[2018-07-20] MEDS ORDERED: DEXTROSE 5%-LR 1,000 ML IV PRN (20:00)
--- NOTE | 2018-07-20 23:23 | LDN ---
Date/Time of Note Date/Time of Note DATE: 07/20/18 TIME: 23:22 Delivery Summary Weeks of Gestation 37 Placenta Delivered: Spontaneously Meconium: none Episiotomy: No Estimated blood loss: 150 Sponge & Needle done & correct: Yes All needle counts correct: Yes Any foreign bodies felt in the: No Delivery Information Sex Infant Sex: female Apgars 1 Minute: 9 5 Minute: 9 Suctioning Nose & mouth suctioned at michelle: No Delee suction performed: No Umbilical Cord Umbilical cord with: 3 Vessels Cord presentations: nuchal cord Nuchal cord present X: 1 Cord Blood was obtained: Yes NAVNEET ROSADO MD July 20, 2018 23:23
[2018-07-20] MEDS ORDERED: WITCH HAZEL/GLYCERIN PAD PR PRN (23:30)
[2018-07-20] MEDS ORDERED: NACL 0.9% 3 ML SYG IV SCH (23:30)
[2018-07-20] MEDS ORDERED: ACETAMINOPHEN 325 MG TAB PO PRN (23:30)
[2018-07-20] MEDS ORDERED: OXYCODONE/ASPIRIN (4.88/325) TAB PO PRN ×2 (23:30)
[2018-07-20] MEDS ORDERED: LANOLIN HPA 1 PKT TOP PRN (23:30)
[2018-07-21 01:30] VITALS: BP 125/68; PULSE 67; RESP 19
[2018-07-21 02:30] VITALS: BP 135/80; PULSE 74; RESP 19
[2018-07-21 04:00] VITALS: BP 128/73; PULSE 79; RESP 19
[2018-07-21] MEDS: IBUPROFEN 600 MG TAB PO SCH ×5 (05:37→23:39)
[2018-07-21 08:40] VITALS: BP 114/66; PULSE 72; RESP 19
[2018-07-21] MEDS: SENNA/DOCUSATE NA (8.6MG/50MG) TAB PO SCH ×2 (09:49→21:05)
--- NOTE | 2018-07-21 11:45 | PD.PPDC ---
[employer] Discharge Instruction Condition [id number] Patient Condition: Ozskc9o Good Diet [id number] Diet: Kljsv4r Resume Regular Diet Activity/Restrictions [id number] Activity: Bnvyr6l Normal Activity May Shower [id number] Restrictions: Mevbc8e No Exercising No Lifting No Driving No Sexual Activity Nothing in the Vagina No Dellrose No Tampons, douche Follow-up Follow-up with Physician: 3 Return to clinic for Crucp7Ox [employer]V MECH[employer]IC Instructions: [id number] Fever greater than 101 Chills Worsening abdominal pain Excessive Vaginal Bleeding More than 2 pads per hour Unable to tolerate diet [id number] OB Instructions: Tljpt4m Breast Tenderness Depression Blurried Vision Headache [id number] Surgical Instructions: [id number] Incisional Drainage Incisional Redness NAVNEET ROSADO MD July 21, 2018 11:45
--- NOTE | 2018-07-21 11:47 | DS ---
Date/Time of Note Date/Time of Note DATE: 07/21/18 TIME: 11:46 Obstetrical Discharge Record Final Diagnosis Final Diagnosis: Term delivered Vaginal Delivery Obstetrical Delivery: Spontaneous Condition on Discharge Physical Assessment Last Vitals: stable afebrile Voiding: Yes Bowel Movement: Yes Breast: Soft, non-tender, Filling Fundus: Firm Abdomen and Incision: soft nt Calf Tenderness: No Patient Condition: Fair NAVNEET ROSADO MD July 21, 2018 11:47
[2018-07-21 16:00] VITALS: BP 124/81; PULSE 71; RESP 18
[2018-07-21 19:45] VITALS: BP 120/68; PULSE 76; RESP 18
[2018-07-22 03:56] VITALS: BP 97/55; PULSE 69; RESP 17
[2018-07-22] MEDS: IBUPROFEN 600 MG TAB PO SCH ×2 (05:38→12:25)
[2018-07-22 08:45] VITALS: BP 116/80; PULSE 70; RESP 18
[2018-07-22] MEDS: SENNA/DOCUSATE NA (8.6MG/50MG) TAB PO SCH (09:00)
--- NOTE | 2018-07-22 10:36 | PAC ---
Date/Time of Note Date/Time of Note DATE: 07/22/18 TIME: 10:35 Post-Anesthesia Notes Post-Anesthesia Note Last documented vital signs Vital Signs Date Temp Pulse Resp B/P (MAP) Pulse Ox O2 O2 Flow FiO2 Time Delivery Rate 07/22/18 97.6 70 18 116/80 Room Air 08:45 (92) Activity: WNL Respiratory function: WNL Cardiovascular function: WNL Mental status: Baseline Pain reasonably controlled: Yes Hydration appropriate: Yes Nausea/Vomiting absent: Yes Comments BP:122/56, P:66, Spo2:100%, T:98,9 MARIO ALBERTO AIKEN MD July 22, 2018 10:36
[2018-07-22 16:00] VITALS: BP 105/71; PULSE 82; RESP 18
--- NOTE | 2018-07-23 17:44 | DELSUM ---
Delivery Summary A-C Datetime Report Generated by CPN: 07/23/2018 17:43 DELIVERY PERSONNEL Ethylene Plant Helper: Dries, Mauricio MATERNAL INFORMATION Delivery Anesthesia: Epidural Medications in Delivery: LR WITH 30 UNITS PITOCIN Delivery QBL (ml): 150 Placenta Cultured: No Maternal Complications: None LABOR SUMMARY EDC: 08/10/2018 00:00 No. Babies in Womb: 1 Attempted: No Labor Anesthesia: Epidural LABOR INFORMATION Reason for Induction: Other Reason for Induction- Other: NON-REASSURING NST Onset of Labor: 07/20/2018 13:45 Complete Dilatation: 07/20/2018 23:04 Cervical Ripening Agents: Cytotec @ Oxytocin: Induction Group B Beta Strep: Negative Antibiotics # of Doses: 0 Steroids Given: Full Course Reason Steroids Not Administered: Not Applicable MEMBRANES Membranes Rupture Method: Artificial Rupture of Membranes: 07/20/2018 16:42 Length of Rupture (hr): 6.48 Amniotic Fluid Color: Clear Amniotic Fluid Amount: Moderate Amniotic Fluid Odor: None STAGES OF LABOR Stage 1 hr: 9 Stage 1 min: 19 Stage 2 hr: 0 Stage 2 min: 7 Stage 3 hr: 0 Stage 3 min: 2 Total Time in Labor hr: 9 Total Time in Labor min: 28 VAGINAL DELIVERY Episiotomy: None Laceration Extension: N/A Laceration Type: None Laceration Repair: Not Applicable Initial Vag Sponge Count: 10 Final Vag Sponge Count: 10 Initial Vag Sharps Count: 1 Final Vag Sharps Count: 1 Sponge Count Correct: Yes; Vaginal Sweep Performed Sharps Count Correct: Yes BABY A INFORMATION Delivery Date/Time: 07/20/2018 23:11 Method of Delivery: Vaginal Born in Route : No : N/A Forceps: N/A Vacuum Extraction: N/A Shoulder Dystocia : N/A SHOULDER DYSTOCIA BABY A Infant Delivery Date/Time: 07/20/2018 23:11 PRESENTATION/POSITION BABY A Presentation: Cephalic Cephalic Presentation: Vertex Vertex Position: Left Occipital Anterior Breech Presentation: N/A PLACENTA INFORMATION BABY A Placenta Delivery Time : 07/20/2018 23:13 Placenta Method of Delivery: Expressed Placenta Status: Delivered SCORES BABY A Heart Rate 1 min: >100 bpm Resp Effort 1 min: Good Cry Reflex Irritability 1 min: Cough/Sneeze/Pulls Away Muscle Tone 1 min: Active Motion Color 1 min: Body [place], Extremit Blue Resuscitation Effort 1 min: Tactile Stimulation SCORE 1 MIN: 9 Heart Rate 5 min: >100 bpm Resp Effort 5 min: Good Cry Reflex Irritability 5 min: Cough/Sneeze/Pulls Away Muscle Tone 5 min: Active Motion Color 5 min: Body [place], Extremit Blue Resuscitation Effort 5 min: Tactile Stimulation SCORE 5 MIN: 9 INFORMATION BABY A Gestational Age at Delivery: 37.0 Gestational Status: Early Term- 37- 38.6 Weeks Infant Outcome : Liveborn Condition : Stable Sex: Female IDENTIFICATION/MEDS BABY A ID Band Number: [id number] ID Band Location: Right Leg; Left Arm Sensor Applied: Yes Sensor Number: [id number] Sensor Location : Cord Clamp Vitamin K Given : Not Given Erythromycin Given: Not Given WEIGHT/LENGTH BABY A Infant Birthweight (gm): 2755 Infant Weight (lb): 6 Weight (oz): 1 Length (in): 19.00 Length (cm): 48.26 CORD INFORMATION BABY A No. Cord Vessels: 3 Nuchal Cord : Around Neck x1, Loose Cord Blood Taken: Yes Infant Suction: Mouth; Nose ASSESSMENT BABY A Infant Complications: Decreased Variability; Multiple Variable Decels Physical Findings at Delivery: Within Normal Limits Respirations: Appears Normal [employer]/ALS Called : Yes Infant Care By: Ethan MENDOZA RN Transferred To: Remains with Mother
--- NOTE | 2018-07-25 14:29 | NSTRPT ---
NST Information Datetime Report Generated by CPN: 07/25/2018 14:29 Datetime: 07/17/2018 14:40 NST Information EGA: 36.4 Time on Monitor: 07/17/2018 15:06 Time off Monitor: 07/17/2018 15:49 NST Duration (Min): 43 Test and Monitor Explained: Monitor Explained; Test Explained; Verbalized Understanding Test Evaluation NST Interventions: Reposition Patient Patient States Movement: Present Contraction Frequency: none FHR Baseline : 150 Variability: Minimal - <=5bpm Accelerations: 15X15 Decelerations: None FHR Category: Category II Electronically Signed By E-Signature: with User ID: [id number] Datetime: 07/17/2018 14:31 Test Number: 1 Time on Monitor: 07/17/2018 15:06 Time off Monitor: 07/17/2018 15:50 NST Duration (Min): 44 Reason for NST: Diabetes Mellitus Reason for NST Other: A1DM, Obesity Test and Monitor Explained: Monitor Explained; Test Explained; Verbalized Understanding Pulse: 82 Resp: 18 SBP: 119 DBP: 66 Patient States Movement: Present Contraction Frequency: none FHR Baseline : 150 Variability: Minimal - <=5bpm Accelerations: 15X15 Decelerations: None FHR Category: Category II NST Results: Non-Reactive Comments: To US ELOY = 10.3 cm cephalic FBS [address] Maritnez. Orders to send pt to L_D for extended monitoring. Dr Quiroz notified. Phone report to Kristen Etienne RN. US report and pnr faxed to OB triage
== END 2018-07-22 17:42 | disposition home or self-care (01) | DRG 807 ==
LOC: OBT 16:26 → L-D 16:27 → UNDOADMIN 17:39 → OBT 17:39 → L-D 18:00 → PP1 07-21 01:40
PROVIDERS: ADMIT Obstetrics & Gynecology; ATTEND Obstetrics & Gynecology
PROC: 10E0XZZ Delivery of Products of Conception, External Approach (ICD-10-PCS; principal; 2018-07-20)
PROC: 3E033VJ Introduction of Other Hormone into Peripheral Vein, Percutaneous Approach (ICD-10-PCS; 2018-07-20)
DX: O69.81X0 Labor and delivery complicated by cord around neck, without compression, not applicable or unspecified (principal); Z37.0 Single live birth; O24.419 Gestational diabetes mellitus in pregnancy, unspecified control; Z3A.37 37 weeks gestation of pregnancy
CPT/HCPCS: 62322; 76815; 76818; 82962; 85025; 85610; 85730; 86592; 86900; 86901; 87340; 99464; G0463; J0702; J1815; J2590; J7120